=== PATIENT | female | born 1980 | race Caucasian/White ===

== ENCOUNTER 2017-12-16 21:04 | Emergency (ER) | payer SELFPAY ==
[2017-12-16 21:08] VITALS: BP 126/74
[2017-12-16] MEDS ORDERED: ALPR-429 PO (21:12)
--- NOTE | 2017-12-16 21:32 | ER Report ---
History and Physical Time Seen By MD: 21:31 Hx. of Stated Complaint: PATIENT HAS BEEN HAVING PAIN IN HER LOWER LEFT TEETH FOR A WHILE OFF ANFD ON, SHE WAS GIVEN ANITBIOTIC DOWN IN [place] BEFORE SHE MOVED, PATIENT STATES SHE HAD BEEN REFERED TO [facility] SURGEON BUT WAS IN THE PROCESS OF MOVING. PATIENT HAS HAD INCREASED SWELLING IN PAIN IN LEFT LOWER TEETH, WITH PAIN RADIATING TO LEFT HEAR AND HEAD. HPI/ROS CHIEF COMPLAINT: Dental pain HISTORY OF PRESENT ILLNESS: 37-year-old female who recently moved here 2-1/2 months ago is complaining of left lower jaw pain. She's been having pain in teeth for several months. She has caries in her last 3 molars. She notes increasing pain over the last 3 days. She is having trouble swallowing. She notes fevers. She notes facial swelling. She states no relief with Tylenol or ibuprofen. Patient denies nausea or vomiting. REVIEW OF SYSTEMS: Respiratory: No cough, no dyspnea. Cardiovascular: No chest pain, no palpitations. Gastrointestinal: No vomiting, no abdominal pain. Musculoskeletal: No back pain. Allergies: Coded Allergies: No Known Drug Allergies (Unverified , 12/16/17) Home Meds Active Scripts Amoxicillin 500 Mg Tab (AMOXICILLIN 500 MG TAB) 500 Mg Tablet, 1 TAB PO Q8H for infection, #30 TAB Prov:SCOTT GARCIA DO 12/16/17 Oxycodone Hcl/Acetaminophen (PERCOCET 5-325 MG TABLET) 1 Each Tablet, 1 EACH PO Q4-6H Y for PAIN, #12 Prov:SCOTT GARCIA DO 12/16/17 Reported Medications Alprazolam (XANAX) 0.5 Mg Tablet, 1 TAB PO TID, TAB 12/16/17 Reviewed Nurses Notes: Yes Old Medical Records Reviewed: Yes Constitutional Vital Sign - Last 24 Hours 12/16/17 21:08 Temp 98.4 Pulse 105 Resp 20 B/P (MAP) 126/74 Pulse Ox 93 O2 Delivery Room Air Physical Exam General Appearance: The patient is alert, has no immediate need for airway protection and no current signs of toxicity. Vital signs stable, afebrile, pulse ox normal HEENT: Pupils equal and round no injection. TMs normal, TMJs nontender, examination of the oropharynx reveals caries involving teeth 1819 and 20. There is surrounding gum inflammation. Respiratory: Chest is non tender, lungs are clear to auscultation. Cardiac: regular rate and rhythm, no murmur Gastrointestinal: Abdomen is soft and non tender, no masses, bowel sounds normal. Musculoskeletal: Neck: Neck is supple and non tender. No lymphadenopathy Extremities have full range of motion and are non tender. Skin: No rashes or lesions. DIFFERENTIAL DIAGNOSIS: After history and physical exam differential diagnosis was considered for dental pain, tooth abscess, osteomyelitis of the jaw, canker sores, lymphadenitis Medical Decision Making ED Course/Re-evaluation ED Course Patient was admitted to an examination room. H&P was done. The differential diagnoses was considered. On conical examination, patient appears to have dental abscess in her left lower jaw. She'll be covered with amoxicillin. She' s given a limited supply of Percocet for pain relief. She is advised Aleve 2 tablets twice daily for pain relief. She is advised to take those with food. She is advised to apply warm compresses to her jaw. She is given a list of local dentist and primary care physicians to get established with. Decision to Disposition Date: Dec 16, 2017 Decision to Disposition Time: 21:36 Depart Departure Latest Vital Signs Vital Signs Date Time Temp Pulse Resp B/P (MAP) Pulse Ox O2 Delivery O2 Flow Rate FiO2 12/16/17 21:08 98.4 105 20 126/74 93 Room Air Impression: Primary Impression: Abscessed tooth Additional Impression: Anxiety Condition: Improved Disposition: HOME OR SELF-CARE Referrals: BETTINA GASPAR MD, FARRUKH MD New Scripts Amoxicillin 500 Mg Tab (AMOXICILLIN 500 MG TAB) 500 Mg Tablet 1 TAB PO Q8H for infection, #30 TAB Prov: SCOTT GARCIA DO 12/16/17 Oxycodone Hcl/Acetaminophen (PERCOCET 5-325 MG TABLET) 1 Each Tablet 1 EACH PO Q4-6H Y for PAIN, #12 Prov: SCOTT GARCIA DO 12/16/17 Patient Instructions: Dental Abscess (ED) Additional Instructions: Take Aleve 2 tablets twice daily with food Apply warm compresses to your left lower jaw Follow-up with a dentist as soon as possible. A list of local dentist was provided Follow-up with primary care and get established for management of your anxiety with or [facility] Problem Qualifiers SCOTT GARCIA DO Dec 16, 2017 21:32
[2017-12-16] MEDS ORDERED: oxyCODONE/ACETAMIN 5/325MG TH 2 TAB/BOTTLE PO ONE (21:35)
[2017-12-16] MEDS ORDERED: AMOXICILLIN 500 MG CAP PO ONE (21:35)
[2017-12-16] MEDS ORDERED: AMOX500T10 PO (21:38)
[2017-12-16] MEDS ORDERED: OXYC-865 PO (21:38)
== END 2017-12-16 21:46 | disposition home or self-care (01) ==
LOC: ER 21:27
DX: K04.7 Periapical abscess without sinus (principal)
CPT/HCPCS: 99283

== ENCOUNTER 2018-01-04 17:04 | Emergency (ER) | payer MEDICAID ==
[~2018-01-04 17:04] MED LIST: ALPR-429 PO; AMOX500T10 PO; OXYC-865 PO
[2018-01-04 17:07] VITALS: BP 118/67
--- NOTE | 2018-01-04 17:13 | ER Report ---
History and Physical Time Seen By MD: 17:14 Hx. of Stated Complaint: DENTAL PAIN WITH ABSCESS FOR 1.5 MONTHS HPI/ROS CHIEF COMPLAINT: dental pain HISTORY OF PRESENT ILLNESS: This is a 37 year old female. She has been having ongoing dental problems. Has been to the dentist, they did x-rays and says she need oral surgery to remove a soft tissue mass and possibly extraction as well. With increasing pain the last few days. She is trying to make arrangements, but because of cost of the procedure is having problems, saying it will cost $1600. Allergies: Coded Allergies: No Known Drug Allergies (Unverified , 12/16/17) Home Meds Active Scripts Oxycodone Hcl (OXYCODONE HCL) 5 Mg Tablet, 5 MG PO Q4H PRN for PAIN, #15 TAB 0 Refills Prov:TATY OCAMPO MD 01/04/18 Amoxicillin (AMOXICILLIN) 500 Mg Capsule, 1 CAP PO Q8H, #30 CAPSULE 0 Refills Prov:TATY OCAMPO MD 01/04/18 Discontinued Reported Medications Alprazolam (XANAX) 0.5 Mg Tablet, 1 TAB PO TID, TAB 12/16/17 Discontinued Scripts Amoxicillin 500 Mg Tab (AMOXICILLIN 500 MG TAB) 500 Mg Tablet, 1 TAB PO Q8H for infection, #30 TAB Prov:SCOTT GARCIA DO 12/16/17 Oxycodone Hcl/Acetaminophen (PERCOCET 5-325 MG TABLET) 1 Each Tablet, 1 EACH PO Q4-6H PRN for PAIN, #12 Prov:SCOTT GARCIA DO 12/16/17 Reviewed Nurses Notes: Yes Hx Alcohol Use: Yes (OCCASIONAL) Constitutional Vital Sign - Last 24 Hours 01/04/18 17:07 Temp 97.8 Pulse 125 Resp 18 B/P (MAP) 118/67 Pulse Ox 95 O2 Delivery Room Air Physical Exam General: Alert, no acute distress. ENT: Dental with a pink colored soft tissue mass, mainly on the inside of the molars, but extends to the outside area as well. Redness and tenderness of teeth and surrounding gums. No sign of abscess at this time and no drainage noted. Medical Decision Making ED Course/Re-evaluation ED Course Need to follow-up with the oral surgeon for this. Able to give further pain medicines and will start another course of amoxicillin. Decision to Disposition Date: Jan 04, 2018 Decision to Disposition Time: 17:27 Depart Departure Latest Vital Signs Vital Signs Date Time Temp Pulse Resp B/P (MAP) Pulse Ox O2 Delivery O2 Flow Rate FiO2 01/04/18 17:07 97.8 125 18 118/67 95 Room Air Impression: Primary Impression: Dental infection Condition: Improved Disposition: HOME OR SELF-CARE New Scripts Oxycodone Hcl (OXYCODONE HCL) 5 Mg Tablet 5 MG PO Q4H PRN for PAIN, #15 TAB 0 Refills Prov: TATY OCAMPO MD 01/04/18 Amoxicillin (AMOXICILLIN) 500 Mg Capsule 1 CAP PO Q8H, #30 CAPSULE 0 Refills Prov: TATY OCAMPO MD 01/04/18 Additional Instructions: You will need to follow-up with dental specialists to have the mass in the gums addressed. We will provide Oxycodone 5mg tablets to use as needed for pain every 4 hours. Keep taking Ibuprofen 200mg tablets, 4 tablets every 8 hours as needed for pain. Take Amoxicillin 500mg three times a day for 10 days. TATY OCAMPO MD Jan 04, 2018 17:13
[2018-01-04] MEDS ORDERED: oxyCODONE HCL 5 MG CAP PO ONE (17:25)
[2018-01-04] MEDS ORDERED: AMOXICILLIN 500 MG CAP PO ONE (17:25)
[2018-01-04] MEDS ORDERED: OXYC5TAB38 PO (17:31)
[2018-01-04] MEDS ORDERED: AMOX-362 PO (17:31)
== END 2018-01-04 17:41 | disposition home or self-care (01) ==
LOC: ER 17:11
DX: K04.7 Periapical abscess without sinus (principal)
CPT/HCPCS: 99283

== ENCOUNTER 2018-01-08 16:11 | Emergency (ER) | payer MEDICAID ==
[~2018-01-08 16:11] MED LIST changes: +AMOX-362 PO; +OXYC5TAB38 PO
--- NOTE | 2018-01-08 16:25 | ER Report ---
History and Physical Time Seen By MD: 16:21 Hx. of Stated Complaint: MOUTH PAIN HPI/ROS CHIEF COMPLAINT: Dental pain HISTORY OF PRESENT ILLNESS: This is a 37-year-old female who presents to the emergency department for dental pain. Patient has been seen and evaluated in the ER 3 times for dental pain. Patient states she does have the funds to have the dental work done, she did follow-up with the oral surgeon today. However she ne glected to ask him for additional pain medication. Patient is here primarily requesting pain medication. She states that the swelling, inflammation and overall discomfort has improved since starting on the antibiotics. Patient denies fevers or chills. No shortness of breath or chest pain. REVIEW OF SYSTEMS: Respiratory: No cough, no dyspnea. Cardiovascular: No chest pain, no palpitations. Gastrointestinal: No vomiting, no abdominal pain. Musculoskeletal: No back pain. Dental: As above. Allergies: Coded Allergies: No Known Drug Allergies (Unverified , 01/08/18) Home Meds Active Scripts Oxycodone Hcl (OXYCODONE HCL) 5 Mg Capsule, 5 MG PO Q6H, #6 CAPSULE 0 Refills Prov:KAY HARRIS ENERGY ADVISOR-BC 01/08/18 Discontinued Reported Medications Alprazolam (XANAX) 0.5 Mg Tablet, 1 TAB PO TID, TAB 12/16/17 Discontinued Scripts Oxycodone Hcl (OXYCODONE HCL) 5 Mg Tablet, 5 MG PO Q4H PRN for PAIN, #15 TAB 0 Refills Prov:TATY OCAMPO MD 01/04/18 Amoxicillin (AMOXICILLIN) 500 Mg Capsule, 1 CAP PO Q8H, #30 CAPSULE 0 Refills Prov:TATY OCAMPO MD 01/04/18 Amoxicillin 500 Mg Tab (AMOXICILLIN 500 MG TAB) 500 Mg Tablet, 1 TAB PO Q8H for infection, #30 TAB Prov:SCOTT GARCIA DO 12/16/17 Oxycodone Hcl/Acetaminophen (PERCOCET 5-325 MG TABLET) 1 Each Tablet, 1 EACH PO Q4-6H PRN for PAIN, #12 Prov:SCOTT GARCIA DO 12/16/17 Past Medical/Surgical History The patient has a past medical and surgical history of migraines, irregular heartbeat, asthma, poor dentition, anxiety, tubal ligation. Reviewed Nurses Notes: Yes Hx Alcohol Use: Yes (OCCASIONAL) Constitutional Vital Sign - Last 24 Hours 01/08/18 01/08/18 01/08/18 01/08/18 16:17 17:02 18:00 18:09 Temp 97.8 Pulse 110 98 90 Resp 18 12 B/P (MAP) 130/99 128/74 (92) 132/74 (93) Pulse Ox 96 95 94 O2 Delivery Room Air Room Air Physical Exam General Appearance: The patient is alert, has no immediate need for airway protection and no current signs of toxicity, tearful. Dental: Multiple dental caries, poor dentition, multiple missing teeth, there is a mass to the inside of the left lower gumline that appears to be the source of pain. Pain to light touch. No erythema. Gingiva is pale, not cellulitic appearing. Eyes: Pupils equal and round no injection. Respiratory: Chest is non tender, lungs are clear to auscultation. Cardiac: regular rate and rhythm. Gastrointestinal: Abdomen is soft and non tender, no masses, bowel sounds normal. Musculoskeletal: Neck: Neck is supple and non tender. Extremities have full range of motion and are non tender. Skin: No rashes or lesions. DIFFERENTIAL DIAGNOSIS: After history and physical exam differential diagnosis was considered for dental caries, dental abscess and oral cancer. Medical Decision Making ED Course/Re-evaluation ED Course The patient was admitted to a room. A history was were obtained. Differential diagnoses were considered. This is the 3rd visit for dental pain since December. Most recently the patient was started on antibiotics and given some pain medication. Patient is here requesting some relief from her pain. She states she does have a scheduled appointment with the oral surgeon next week. I did offer the patient a dental block, which did not take. Patient was given one hydrocodone and one oxycodone in the ER. Patient was given a one-time prescription for 6 oxycodone. The patient was instructed to follow-up with the dentist or oral surgeon for subsequent pain medication. Patient does understand that we cannot continue to fill narcotic pain medications for chronic dental pain. She is still taking her antibiotics. Patient had no other questions or concerns at this time and was discharged home. Procedure: Dental block. An inferior alveolar dental block was performed. The indication for the proced ure was continued dental pain. The patient has multiple dental caries, has had a "dental abscess" for approximately 1 year. The procedure was performed by myself. Decision to Disposition Date: Jan 08, 2018 Decision to Disposition Time: 18:06 Depart Departure Latest Vital Signs Vital Signs Date Time Temp Pulse Resp B/P (MAP) Pulse Ox O2 Delivery O2 Flow Rate FiO2 01/08/18 18:09 132/74 (93) 01/08/18 18:00 90 94 01/08/18 17:02 12 Room Air 01/08/18 16:17 97.8 Impression: Primary Impression: Pain, dental Additional Impression: Pain due to dental caries Condition: Improved Disposition: HOME OR SELF-CARE New Scripts Oxycodone Hcl (OXYCODONE HCL) 5 Mg Capsule 5 MG PO Q6H, #6 CAPSULE 0 Refills Prov: KAY HARRIS 01/08/18 Patient Instructions: Dental Abscess (ED), Dental Caries (ED) Additional Instructions: Continue taking the antibiotics as prescribed. Contact your oral surgeon for medications that can treat your chronic dental pain. Take Ibuprofen or Tylenol as needed for pain. Keep your appointment with the oral surgeon next week. Drink plenty of water. Get plenty of rest. Try a warm pack to the affected area, this may provide some relief. Return to the ED for any other concerns or worsening symptoms. Problem Qualifiers KAY HARRIS-AMY Jan 08, 2018 16:25
[2018-01-08] MEDS ORDERED: APAP/HYDROCODONE 325/5 TAB PO ONE (16:35)
[2018-01-08] MEDS ORDERED: oxyCODONE HCL 5 MG CAP PO ONE (17:25)
[2018-01-08] MEDS ORDERED: OXYC5CAP21 PO (17:57)
[2018-01-08 18:09] VITALS: BP 132/74
== END 2018-01-08 18:12 | disposition home or self-care (01) ==
LOC: ER 16:18
DX: K08.89 Other specified disorders of teeth and supporting structures (principal); K02.9 Dental caries, unspecified
CPT/HCPCS: 99283

== ENCOUNTER → 2018-01-12 | Outpatient (CLI) | payer MEDICAID ==
[~2018-01-12] MED LIST changes: +ALBU8.5H IH; +AZIT-18 PO; +BENZ200C15 PO; +DICY10CA11 PO; +ONDA4TAB PO; +OXYC5CAP21 PO; +PRED20TA6 PO
== END ==
LOC: AMB 22:45
PROVIDERS: ATTEND Nurse Practitioner
DX: R06.00 Dyspnea, unspecified (principal); R05 Cough; R19.7 Diarrhea, unspecified
CPT/HCPCS: A0425; A0427

== ENCOUNTER 2018-01-13 11:45 | Emergency (ER) | payer MEDICAID ==
[~2018-01-13 11:45] MED LIST changes: -AZIT-18 PO; -DICY10CA11 PO; -ONDA4TAB PO; -PRED20TA6 PO
--- NOTE | 2018-01-13 11:56 | ER Report ---
History and Physical Time Seen By MD: 11:57 Hx. of Stated Complaint: PT REPORTS INCREASED SOB, PAIN IN L EAR AND JAW AND WORSENING COUGH WITH INCREASED PAIN HPI/ROS 37-year-old female with a history of IV drug abuse, narcotic abuse, and chronic pain. She moved to [place] from [place] approximately 3 weeks ago. She has been seen in this emergency department 6 times since she moved here. She has been seen in the emergency department 5 times between January 04 and January 13 complaining of jaw pain from a "abscess." She was seen in the emergency department yesterday for the same complaint. She argued with the mid-level provider about not getting a take-home prescription for narcotics. His called today by the urgent care physician who said the patient was at the urgent care asking for oxycodone because of the "infection" in her mouth. The provider at the urgent care noted that she was tachycardic, borderline hypoxic, and wheezing on her lung exam. He sent her to the emergency department for further evaluati on. She is complaining of pain in her jaw and mild shortness of breath and a cough. She denies fever chills. She again states that when she lived in [place] she was receiving 30 mg a day of oxycodone, by mouth morphine, and by mouth dilaudid. I immediately discussed with her that that was not appropriate medical care, and that I would be evaluating her for her chief complaints today. She denied chest pain. She denies fever chills. She smokes a pack of cigarettes a day. 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 She is currently on amoxicillin for what had appeared to be a dental carry. Remainder of the 14 system rev: Yes Allergies: Coded Allergies: No Known Drug Allergies (Unverified , 01/13/18) Home Meds Active Scripts Azithromycin 250 Mg Tab (AZITHROMYCIN 250 MG TAB) 250 Mg Tablet, 1 TAB PO QDAY for 4 Days, #4 TAB Prov:ITALIA GO MD 01/13/18 Prednisone (PREDNISONE) 20 Mg Tablet, 40 MG PO QDAY for 5 Days, #10 TAB Prov:ITALIA GO MD 01/13/18 Dicyclomine Hcl (DICYCLOMINE HCL) 10 Mg Capsule, 10 MG PO QID for 14 Days, #20 CAPSULE Prov:ITALIA GO MD 01/13/18 Ondansetron (ZOFRAN ODT) 4 Mg Tab.rapdis, 4 MG PO Q6H PRN for NAUSEA/VOMITING, #20 TAB.MARIE 0 Refills Prov:ITALIA GO MD 01/13/18 Benzonatate (BENZONATATE) 200 Mg Capsule, 200 MG PO TID PRN for COUGH, #15 CAP Prov:KAY HARRIS [facility] 01/12/18 Albuterol Sulfate 90 Mcg/Act (PROAIR HFA 90 MCG/ACT) 8.5 Gm Hfa.aer.ad, 1-2 PUFF IH 3-4XD, #1 INHALER Prov:KAY HARRIS [facility] 01/12/18 Discontinued Scripts Oxycodone Hcl (OXYCODONE HCL) 5 Mg Capsule, 5 MG PO Q6H, #6 CAPSULE 0 [facility] 01/08/18 Oxycodone Hcl (OXYCODONE HCL) 5 Mg Tablet, 5 MG PO Q4H PRN for PAIN, #15 TAB 0 Refills Prov:TATY OCAMPO MD 01/04/18 Amoxicillin (AMOXICILLIN) 500 Mg Capsule, 1 CAP PO Q8H, #30 CAPSULE 0 Refills Prov:TATY OCAMPO MD 01/04/18 Reviewed Nurses Notes: Yes Old Medical Records Reviewed: Yes Hx Smoking: Yes Smoking Status: Current: Every Day Smoker Exposure to Second Hand Smoke?: Yes Hx Substance Use Disorder: Yes Hx Alcohol Use: Yes (OCCASIONAL) Constitutional Vital Sign - Last 24 Hours 01/13/18 01/13/18 01/13/18 01/13/18 11:45 11:45 11:51 12:00 Temp 98.4 Pulse 118 112 Resp 24 B/P (MAP) 119/69 119/69 (86) 116/67 (83) Pulse Ox 94 92 O2 Delivery Nasal Cannula O2 Flow Rate 2.0 01/13/18 01/13/18 01/13/18 01/13/18 12:15 12:15 12:15 12:20 Pulse 123 120 116 Resp 20 20 Pulse Ox 93 93 O2 Delivery Nasal Cannula O2 Flow Rate 2.0 01/13/18 01/13/18 01/13/1801/13/18 12:30 13:00 13:05 13:20 Pulse 130 112 118 124 B/P (MAP) 125/90 (102) 120/65 (83) Pulse Ox 93 92 91 91 01/13/18 01/13/18 01/13/18 01/13/18 13:30 13:35 14:00 14:35 Pulse 123 110 B/P (MAP) 125/54 (77) 128/118 (121) Pulse Ox 91 89 01/13/18 01/13/18 01/13/18 01/13/18 14:40 15:10 15:30 15:40 Pulse 111 122 116 B/P (MAP) 121/71 (88) Pulse Ox 88 87 88 01/13/18 01/13/18 01/13/18 01/13/18 16:00 16:20 16:28 16:28 Pulse 120 124 Resp 20 B/P (MAP) 137/94 (108) Pulse Ox 89 90 O2 Delivery Room Air 01/13/18 01/13/18 16:40 17:49 Temp 98.4 Pulse 120 104 Resp 20 20 B/P (MAP) 104/84 (91) Pulse Ox 91 O2 Delivery Room Air Physical Exam General Appearance: The patient is alert, has no immediate need for airway protection and no current signs of toxicity. ENT: There is a firm and non-fluctuant mass-like structure in her left lower molar region, TM's are clear Eyes: Pupils equal and round no injection. Respiratory: Chest is non tender, there is diffuse wheezing throughout the lung lovell Cardiac: tachycardic and rhythm Gastrointestinal: Abdomen is soft and non tender, no masses, bowel sounds normal. Neck: Neck is supple and non tender. Extremities have full range of motion and are non tender. Skin: No rashes or lesions. DIFFERENTIAL DIAGNOSIS: After history and physical exam differential diagnosis was considered for pneumonia, PE, bronchitis, COPD exacerbation, opiate withdrawal, dental mass Medical Decision Making Data Points Result Diagram: 01/13/18 1459 01/13/18 1459 Laboratory Hematology Test 01/13/18 14:59 01/13/18 15:27 Red Blood Count 4.46 M/uL (4.17-5.56) Mean Corpuscular Volume 91.9 fL (80.0-96.0) Mean Corpuscular Hemoglobin 32.2 pg (26.0-33.0) Mean Corpuscular Hemoglobin Concent 35.0 g/dL (32.0-36.0) Red Cell Distribution Width 14.4 % (11.5-14.5) Mean Platelet Volume 8.6 fL (7.2-11.1) Neutrophils (%) (Auto) 89.3 % (39.4-72.5) Lymphocytes (%) (Auto) 7.4 % (17.6-49.6) Monocytes (%) (Auto) 2.7 % (4.1-12.4) Eosinophils (%) (Auto) 0.2 % (0.4-6.7) Basophils (%) (Auto) 0.4 % (0.3-1.4) Nucleated RBC Relative Count (auto) 0.0 /100WBC Neutrophils # (Auto) 7.7 K/uL (2.0-7.4) Lymphocytes # (Auto) 0.6 K/uL (1.3-3.6) Monocytes # (Auto) 0.2 K/uL (0.3-1.0) Eosinophils # (Auto) 0.0 K/uL (0.0-0.5) Basophils # (Auto) 0.0 K/uL (0.0-0.1) Nucleated RBC Absolute Count (auto) 0.00 K/uL D-Dimer Quantitative (PE/DVT) 0.38 ug/ml (0-0.50) Sodium Level 138 mmol/L (137-145) Potassium Level 3.8 mmol/L (3.5-5.0) Chloride Level 108 mmol/L (98-107) Carbon Dioxide Level 20 mmol/L (22-31) Blood Urea Nitrogen 10 mg/dl (7-18) Creatinine 0.60 mg/dl (0.52-1.04) Glomerular Filtration Rate Calc > 60.0 Random Glucose 107 mg/dl (75-110) Calcium Level 7.8 mg/dl (8.4-10.2) Total Bilirubin 0.9 mg/dl (0.2-1.3) Aspartate Amino Transf (AST/SGOT) 165 U/L (0-35) Alanine Aminotransferase (ALT/SGPT) 250 U/L (0-56) Alkaline Phosphatase 116 U/L (0-126) Total Protein 6.9 g/dl (6.3-8.2) Albumin 3.9 g/dl (3.5-5.0) Urine HCG, Qualitative Negative (NEGATIVE) Urine Opiates Screen Positive Urine Barbiturates Screen Negative Ur Tricyclic Antidepressants Screen Negative Urine Phencyclidine Screen Negative Urine Amphetamines Screen Negative Urine Benzodiazepines Screen Negative Urine Cocaine Screen Negative Urine Cannabinoids Screen Positive Chemistry Test 01/13/18 14:59 01/13/18 15:27 White Blood Count 8.6 k/uL (4.5-11.0) Red Blood Count 4.46 M/uL (4.17-5.56) Hemoglobin 14.4 g/dL (12.0-16.0) Hematocrit 41.0 % (34.0-47.0) Mean Corpuscular Volume 91.9 fL (80.0-96.0) Mean Corpuscular Hemoglobin 32.2 pg (26.0-33.0) Mean Corpuscular Hemoglobin Concent 35.0 g/dL (32.0-36.0) Red Cell Distribution Width 14.4 % (11.5-14.5) Platelet Count 169 K/uL (150-450) Mean Platelet Volume 8.6 fL (7.2-11.1) Neutrophils (%) (Auto) 89.3 % (39.4-72.5) Lymphocytes (%) (Auto) 7.4 % (17.6-49.6) Monocytes (%) (Auto) 2.7 % (4.1-12.4) Eosinophils (%) (Auto) 0.2 % (0.4-6.7) Basophils (%) (Auto) 0.4 % (0.3-1.4) Nucleated RBC Relative Count (auto) 0.0 /100WBC Neutrophils # (Auto) 7.7 K/uL (2.0-7.4) Lymphocytes # (Auto) 0.6 K/uL (1.3-3.6) Monocytes # (Auto) 0.2 K/uL (0.3-1.0) Eosinophils # (Auto) 0.0 K/uL (0.0-0.5) Basophils # (Auto) 0.0 K/uL (0.0-0.1) Nucleated RBC Absolute Count (auto) 0.00 K/uL D-Dimer Quantitative (PE/DVT) 0.38 ug/ml (0-0.50) Glomerular Filtration Rate Calc > 60.0 Calcium Level 7.8 mg/dl (8.4-10.2) Total Bilirubin 0.9 mg/dl (0.2-1.3) Aspartate Amino Transf (AST/SGOT) 165 U/L (0-35) Alanine Aminotransferase (ALT/SGPT) 250 U/L (0-56) Alkaline Phosphatase 116 U/L (0-126) Total Protein 6.9 g/dl (6.3-8.2) Albumin 3.9 g/dl (3.5-5.0) Urine HCG, Qualitative Negative (NEGATIVE) Urine Opiates Screen Positive Urine Barbiturates Screen Negative Ur Tricyclic Antidepressants Screen Negative Urine Phencyclidine Screen Negative Urine Amphetamines Screen Negative Urine Benzodiazepines Screen Negative Urine Cocaine Screen Negative Urine Cannabinoids Screen Positive Coagulation Test 01/13/18 14:59 D-Dimer Quantitative (PE/DVT) 0.38 ug/ml Toxicology Test 01/13/18 15:27 Urine Opiates Screen Positive Urine Barbiturates Screen Negative Ur Tricyclic Antidepressants Screen Negative Urine Phencyclidine Screen Negative Urine Amphetamines Screen Negative Urine Benzodiazepines Screen Negative Urine Cocaine Screen Negative Urine Cannabinoids Screen Positive Urinalysis Test 01/13/18 15:27 Urine HCG, Qualitative Negative (NEGATIVE) EKG/Imaging EKG Interpretation 12 lead EKG: Rhythm: Sinus tachycardia Griffith: normal QRS: normal ST segments: normal Monitor Interpretation: Sinus Tachycardia Imaging X-ray: cxr was obtained. I viewed the images myself on the PACS system. My interpretation of the images is: no infiltrate. The radiologist interpretation had no clinically significant variation from this interpretation. Results: CT scan of the mandible was obtained. The results of the study are no abscess or mass. The study was read by the radiologist. I viewed the images myself on the PACS system. ED Course/Re-evaluation Clinical Indication for ER IV: Hydration, IV Access ED Course 37-year-old female sent to the emergency department for hypoxia, tachycardia, and wheezing on lung exam. She was given a DuoNeb, and albuterol neb, prednisone, and Mucinex. She was given a prescription for an albuterol MDI yesterday. PE was considered, but d-dimer is negative and she has other reasons for her tachycardia. Throughout her ED stay she asked for narcotic pain medication for the pain in her mouth. I gave her Toradol and IV acetaminophen for pain, and she continued to complain about not getting narcotics. Given that she has been here 6 times complaining of pain from a dental "abscess," I elected to obtain a CT scan of the mandible to determine if she had an infection. CT scan of the mandible shows no evidence of infection, and no evidence of a mass. She does have a small soft tissue mass, but it is likely chronic. She states that she has a dental surgery scheduled on Saturday. I had a long discussion with she and her boyfriend about the fact that I think her tachycardia is from narcotic withdrawal. She stated multiple times that she received oxycodone, by mouth morphine, and Dilaudid for pain while she was in [place]. I counseled her that she should seek help for her narcotic addiction. She is very tearful during the discussion. Her boyfriend was in support of her becoming clean from her narcotic addiction. He admits that she has been seeking narcotics. I told her that I would treat her symptoms of continued narcotic withdrawal, and reminded her that she essentially had been tapering for the past 3 weeks. I gave her a clonidine patch and a prescription for Bentyl and Zofran. I also gave her information to seek treatment for her narcotic addiction. Decision to Disposition Date: Jan 13, 2018 Decision to Disposition Time: 17:37 Depart Departure Latest Vital Signs Vital Signs Date Time Temp Pulse Resp B/P (MAP) Pulse Ox O2 Delivery O2 Flow Rate FiO2 01/13/18 17:49 98.4 104 20 104/84 (91) 91 Room Air 01/13/18 12:15 2.0 Impression: Primary Impression: Opiate misuse Additional Impressions: Opiate withdrawal Pneumonia Condition: Improved Disposition: HOME OR SELF-CARE New Scripts Azithromycin 250 Mg Tab (AZITHROMYCIN 250 MG TAB) 250 Mg Tablet 1 TAB PO QDAY for 4 Days, #4 TAB Prov: ITALIA GO MD 01/13/18 Prednisone (PREDNISONE) 20 Mg Tablet 40 MG PO QDAY for 5 Days, #10 TAB Prov: ITALIA GO MD 01/13/18 Dicyclomine Hcl (DICYCLOMINE HCL) 10 Mg Capsule 10 MG PO QID for 14 Days, #20 CAPSULE Prov: ITALIA GO MD 01/13/18 Ondansetron (ZOFRAN ODT) 4 Mg Tab.rapdis 4 MG PO Q6H PRN for NAUSEA/VOMITING, #20 TAB.MARIE 0 Refills Prov: ITALIA GO MD 01/13/18 Patient Instructions: Community Acquired Pneumonia (ED), Opioid Dependence (ED) Problem Qualifiers Additional Impressions: Pneumonia Pneumonia type: due to unspecified organism Laterality: unspecified laterality Lung location: unspecified part of lung Qualified Codes: J18.9 - Pneumonia, unspecified organism ITALIA GO MD Jan 13, 2018 11:56
[2018-01-13] MEDS ORDERED: predniSONE 20 MG TAB PO ONE (12:05)
[2018-01-13] MEDS ORDERED: guaiFENesin/P-EPHED 1 EA TABCR PO ONE (12:05)
[2018-01-13] MEDS ORDERED: ALBUTEROL/IPRATROPIUM 3 ML NEB NEB ONE (12:05)
[2018-01-13] MEDS ORDERED: NS(*) 0.9% 1000 ML BAG 1,000 ML IV ONE (12:05)
--- NOTE | 2018-01-13 13:12 | RADIOLOGY IMAGING REPORT ---
FACILITY: [facility] PATIENT NAME: Ainsley Parnell : 1980 MR: [id number] V: [id number] EXAM DATE: ORDERING PHYSICIAN: ITALIA GO TECHNOLOGIST: Location: [facility] Patient: Ainsley Parnell : 1980 Visit/Account:[id number] Date of Sevice: 01/13/2018 CHEST PA AND LAT HISTORY: Cough. Hypoxia. COMPARISON: January. FINDINGS: Cardiomediastinal contours: The heart size is normal. Lungs and pleura: Comparison the previous study shows no change in previous noted prominence of the b ronchovascular markings. The findings could represent bronchitis or perhaps early atypical pneumonia . Correlation clinical findings is recommended. There is prominence of the jade bilaterally. This is a stable finding. Bones/soft tissues: There are no findings of a fracture. IMPRESSION: 1. Mild and persistent prominence of the interstitial markings perhaps related to bronchitis or perh aps atypical pneumonia. There is prominence of the central jade could be vascular in nature, but the re are no pleural effusions. Report Dictated By: Dilan Emanuel MD at 01/13/2018 1:07 PM Report E-Signed By: Dilan Emanuel MD at 01/13/2018 1:09 PM WSN:[id number]
[2018-01-13] MEDS ORDERED: ACETAMINOPHEN(*)1000 MG/100 ML 100 ML IVPB ONE (13:55)
[2018-01-13] MEDS ORDERED: ALBUTEROL 2.5 MG/0.5ML ER ONLY NEB ONE (14:10)
[2018-01-13] MEDS ORDERED: IOPAMIDOL 76% 75 ML INFUS BTL 75 ML ONE (14:58)
--- NOTE | 2018-01-13 15:23 | EKG ---
FACILITY: [facility] [place] PATIENT NAME: YOLI GARDINER : [id number] MR: [id number]: [id number] EXAM DATE: ORDERING PHYSICIAN: ITALIA GO TECHNOLOGIST: Test Reason : Blood Pressure : / mmHG Vent. Rate : 113 BPM Atrial Rate : 113 BPM P-R Int : 124 ms QRS Dur : 088 ms QT Int : 342 ms P-R-T Axes : 059 061 034 degrees QTc Int : 469 ms Sinus tachycardia Otherwise normal ECG When compared with ECG of 12-JAN-2018 23:11, No significant change was found Confirmed by Beto Condon ([id number]) on 01/13/2018 8:02:42 PM Referred By: Confirmed By:Beto Greenberg
[2018-01-13 15:25] LABS: PLATELET COUNT, AUTOMATED 169 K/uL (150-450)
[2018-01-13] MEDS ORDERED: KETOROLAC 30 MG/ML VIAL IM ONE (15:55)
--- NOTE | 2018-01-13 16:52 | RADIOLOGY IMAGING REPORT ---
FACILITY: [facility] PATIENT NAME: Ainsley Parnell : 1980 MR: [id number] V: [id number] EXAM DATE: ORDERING PHYSICIAN: ITALIA GO TECHNOLOGIST: Location: [facility] Patient: Ainsley Parnell : 1980 Visit/Account:[id number] Date of Sevice: 01/13/2018 EXAMINATION: CT facial bone with IV contrast HISTORY: Painful growth in left lower mouth/abscess. COMPARISON: None. TECHNIQUE: Axial images were obtained from the superior aspect of the orbits through the inferior as pect of mandible with IV contrast. Coronal and sagittal reformatted images were obtained from the axi al source data. CONTRAST: 75 mL of IV Isovue-370. One of the following dose optimization techniques was utilized in the performance of this exam: Autom ated exposure control; adjustment of the mA and/or kV according to the patient's size; or use of an i terative reconstruction technique. Specific details can be referenced in the facility's radiology C T exam operational policy. FINDINGS: Soft tissues: There is no focal soft tissue mass in the left mouth or elsewhere. No fluid collection. Mandible/TMJ: Negative. Maxilla/pterygoid plates: Negative. Zygoma/zygomatic arches: Negative. Orbits: Negative. Nasal bones/nasal septum: Mild nasal septal deviation to the left without significant narrowing the n kareem cavity. Frontal bones: Negative. Skull base: The styloid processes are elongated bilaterally with a gap in each of them centrally and ossification of the stylohyoid ligaments inferiorly. Together the styloid processes and ossification of stylohyoid ligaments measure nearly 6 cm on each side. The ossification extends to just above the hyoid bone bilaterally. Enhancement: Normal. Sinuses: Mild patchy mucosal thickening of the paranasal sinuses is worst in the right sphenoid sinus . Visualized brain: Negative. IMPRESSION: 1. No soft tissue mass or abscess. 2. Bilateral elongated styloid processes and ossification of the stylohyoid ligaments, which extend t o just above the hyoid bone. These have been reported with throat pain and potentially may be the pat ient's source of pain, although they also may be asymptomatic. Report Dictated By: Juliana Ovalle MD at 01/13/2018 4:39 PM Report E-Signed By: Juliana Ovalle MD at 01/13/2018 4:48 PM WSN:[id number]
[2018-01-13] MEDS ORDERED: AZITHROMYCIN 250 MG TAB PO ONE (17:20)
[2018-01-13] MEDS ORDERED: cloNIDine HCL 0.2 MG TDSY TD ONE (17:40)
[2018-01-13] MEDS ORDERED: DICY10CA11 PO (17:41)
[2018-01-13] MEDS ORDERED: ONDA4TAB PO (17:41)
[2018-01-13 17:49] VITALS: BP 104/84
[2018-01-13] MEDS ORDERED: AZIT-18 PO (18:01)
[2018-01-13] MEDS ORDERED: PRED20TA6 PO (18:01)
== END 2018-01-13 17:50 | disposition home or self-care (01) ==
LOC: ER 11:59
DX: F11.23 Opioid dependence with withdrawal (principal); J18.9 Pneumonia, unspecified organism
CPT/HCPCS: 36415; 70487; 71046; 80305; 81025; 85025; 85379; 94640; 96361; 96365; 96372; 99284; J0131; J1885; J7030; J7512; J7611; J7620; Q0144; Q9967; 82040; 82247; 82310; 82374; 82435; 82565; 82947; 84075; 84132; 84155; 84295; 84450; 84460; 84520

== ENCOUNTER → 2018-01-13 | Emergency (ER) | payer MEDICAID | LOC: ER 18:33 | DX: Z02.9 Encounter for administrative examinations, unspecified (principal) | CPT/HCPCS: 93005 ==

== ENCOUNTER 2018-01-30 17:59 | Emergency (ER) | payer MEDICAID ==
[~2018-01-30 17:59] MED LIST changes: +AZIT-18 PO; +DICY10CA11 PO; +ONDA4TAB PO; +PRED20TA6 PO
[2018-01-30 18:03] VITALS: BP 139/98
[2018-01-30] MEDS ORDERED: AMOX-362 PO (18:05)
--- NOTE | 2018-01-30 18:08 | ER Report ---
History and Physical Time Seen By MD: 18:07 Hx. of Stated Complaint: C/O THROBBING TO LEFT SIDE OF MOUTH AFTER TUMOR REMOVAL HPI/ROS CHIEF COMPLAINT: Postoperative pain. HISTORY OF PRESENT ILLNESS: This is a 38-year-old female who presents to the emergency department, she has been seen and evaluated here multiple times for dental concerns she presents for postoperative pain. Patient states she had the tumor removed, the dentist gave her only a certain amount of a medications, she states that she owes the dentist a lot of money and doesn't feel that she can call a dentist now she is out of pain medication. The incision and dental work and gums look well, no active bleeding. No swelling or erythema. No shortness of breath, no fevers or chest pain. REVIEW OF SYSTEMS: Respiratory: No cough, no dyspnea. Cardiovascular: No chest pain, no palpitations. Gastrointestinal: No vomiting, no abdominal pain. Musculoskeletal: No back pain. Dental: As above. Allergies: Coded Allergies: No Known Drug Allergies (Unverified , 01/30/18) Home Meds Active Scripts Albuterol Sulfate 90 Mcg/Act (PROAIR HFA 90 MCG/ACT) 8.5 Gm Hfa.aer.ad, 1-2 PUFF IH 3-4XD, #1 INHALER Prov:KAY HARRIS SOCIAL SECURITY ASSESSOR-BC 01/12/18 Reported Medications Amoxicillin (AMOXICILLIN) 500 Mg Capsule, 1 CAP PO Q8H, #15 CAPSULE 01/30/18 Discontinued Scripts Azithromycin 250 Mg Tab (AZITHROMYCIN 250 MG TAB) 250 Mg Tablet, 1 TAB PO QDAY for 4 Days, #4 TAB Prov:ITALIA GO MD 01/13/18 Prednisone (PREDNISONE) 20 Mg Tablet, 40 MG PO QDAY for 5 Days, #10 TAB Prov:ITALIA GO MD 01/13/18 Dicyclomine Hcl (DICYCLOMINE HCL) 10 Mg Capsule, 10 MG PO QID for 14 Days, #20 CAPSULE Prov:ITALIA GO MD 01/13/18 Ondansetron (ZOFRAN ODT) 4 Mg Tab.rapdis, 4 MG PO Q6H PRN for NAUSEA/VOMITING, #20 TAB.MARIE 0 Refills Prov:ITALIA GO MD 01/13/18 Benzonatate (BENZONATATE) 200 Mg Capsule, 200 MG PO TID PRN for COUGH, #15 CAP Prov:KAY HARRIS SOCIAL SECURITY ASSESSOR-BC 01/12/18 Past Medical/Surgical History The patient has a past medical and surgical history of asthma, irregular he artbeat, "bad teeth", anxiety, polysubstance abuse, heroin abuse. Reviewed Nurses Notes: Yes Hx Smoking: Yes Smoking Status: Current: Every Day Smoker Exposure to Second Hand Smoke?: Yes Hx Substance Use Disorder: Yes Hx Alcohol Use: Yes (OCCASIONAL) Constitutional Vital Sign - Last 24 Hours 01/30/18 18:03 Temp 99.5 Pulse 120 Resp 18 B/P (MAP) 139/98 Pulse Ox 95 O2 Delivery Room Air Physical Exam General Appearance: The patient is alert, has no immediate need for airway protection and no current signs of toxicity. Eyes: Pupils equal and round no injection. Dental: No erythema or inflammation to the gumline, gingiva intact. Surgical site appears to be intact, no drainage. Respiratory: Chest is non tender, lungs are clear to auscultation. Cardiac: regular rate and rhythm. Gastrointestinal: Abdomen is soft and non tender, no masses, bowel sounds normal. Musculoskeletal: Neck: Neck is supple and non tender. Extremities have full range of motion and are non tender. Skin: No rashes or lesions. DIFFERENTIAL DIAGNOSIS: After history and physical exam differential diagnosis was considered for dental abscess, postsurgical complications and narcotic abuse. Medical Decision Making ED Course/Re-evaluation ED Course The patient was admitted to room. A history and physical were obtained. Differential diagnoses were considered. After examination of the patient, it did appear that the tumor was removed from the patient's mouth, the area was excised looks remarkably well, no erythema or indication of infection. Patient is requesting narcotic pain medications for her pain, I did tell patient that I would give her a shot of Toradol, the patient was unwilling to take the shot of Toradol, 1 did speak with another provider so that she could get narcotics. I did have Dr. Go go in and speak with the patient, ultimately the patient left AMA. I also did tell the patient that it would be in her best interest to call and speak with the dentist again regarding her pain. Patient continued to say that as she owes the surgeon or dentist money they would not give her anything. 01/30/2018 6:15:19 pm the patient states that she is having significant pain fr om the removal of the tumor, she states she "owes her dentist a lot of money" and didn't feel like he would be able to give her any pain medication he only gave her 3 days worth, I did tell the patient that I could give her shot of Toradol but no other narcotics as we have had this discussion with her at least 6 times over the course of this month, patient has a long-standing history of opiate, narcotic abuse. Patient is requesting to see another provider. I did speak with Dr. Go she will go in and speak with the patient. Decision to Disposition Date: Jan 30, 2018 Decision to Disposition Time: 18:45 Depart Departure Latest Vital Signs Vital Signs Date Time Temp Pulse Resp B/P (MAP) Pulse Ox O2 Delivery O2 Flow Rate FiO2 01/30/18 18:03 99.5 120 18 139/98 95 Room Air Core Temperature (Celsius): 36.89 Impression: Primary Impression: Pain, dental Additional Impression: Opiate misuse Condition: Condition Unchanged Disposition: HOME OR SELF-CARE Problem Qualifiers KAY HARRIS SOCIAL SECURITY ASSESSOR-BC Jan 30, 2018 18:08
== END 2018-01-30 18:22 | disposition left against medical advice (07) ==
LOC: ER 18:11
DX: K08.89 Other specified disorders of teeth and supporting structures (principal); F11.90 Opioid use, unspecified, uncomplicated
CPT/HCPCS: 99281

== ENCOUNTER 2018-04-08 14:24 | Emergency (ER) | payer MEDICAID ==
--- NOTE | 2018-04-08 14:35 | ER Report ---
History and Physical Time Seen By MD: 14:36 Hx. of Stated Complaint: LEFT SIDED DENTAL PAIN STARTED LAST NIGHT HPI/ROS CHIEF COMPLAINT: Dental pain HISTORY OF PRESENT ILLNESS: 38-year-old female patient presents to emergency room with complaint of left-sided tooth pain. Patient states that she's been hav ing pain since last night. She states that she was eating when she felt shards of her tooth in her mouth. Patient states since then she's been having significant amounts of pain. She states that she's not been ill with keep her pain under control. She has tried Toradol, ibuprofen, Tylenol WITH no improvement. Also tried clove again with no improvement. She states she's felt hot, but denies any fevers or chills. Her significant other states that he was contacted by her employer stating that he needs can get her as she was in too much pain to continue working. Allergies: Coded Allergies: No Known Drug Allergies (Unverified , 04/08/18) Home Meds Active Scripts Amoxicillin (AMOXICILLIN) 500 Mg Capsule, 1 CAP PO Q8H, #21 CAPSULE Prov:MARIBELL GARZA DIRECTOR [facility] 04/08/18 Albuterol Sulfate 90 Mcg/Act (PROAIR HFA 90 MCG/ACT) 8.5 Gm Hfa.aer.ad, 1-2 PUFF IH 3-4XD, #1 INHALER Prov:KAY HARRIS DIRECTOR [facility] 01/12/18 Discontinued Reported Medications Amoxicillin (AMOXICILLIN) 500 Mg Capsule, 1 CAP PO Q8H, #15 CAPSULE 01/30/18 Past Medical/Surgical History Patient has a past medical history of migraines, irregular heartbeat, asthma, "bad teeth", substance abuse, alcohol abuse, anxiety. Patient has surgical history of tubal ligation. Reviewed Nurses Notes: Yes Hx Smoking: Yes Smoking Status: Current: Every Day Smoker Exposure to Second Hand Smoke?: Yes Hx Substance Use Disorder: Yes Hx Alcohol Use: Yes (OCCASIONAL) Constitutional Vital Sign - Last 24 Hours 04/08/18 04/08/18 04/08/18 04/08/18 14:27 14:30 14:45 15:00 Temp 97.8 Pulse 103 108 102 127 Resp 18 B/P (MAP) 132/87 147/89 (108) Pulse Ox 96 94 90 91 O2 Delivery Room Air 04/08/18 15:15 Pulse 92 Pulse Ox 95 Physical Exam General appearance: Alert no distress. Respiratory: Chest is non tender, lungs are clear to auscultation. Cardiac: Regular rate and rhythm. ENT: Tympanic membranes are pearly-gil, auditory canals are patent, mucous membranes are moist. Patient does have broken tooth #20. Patient has multiple caries along all teeth. DIFFERENTIAL DIAGNOSIS: After history and physical exam differential diagnosis was considered for tooth fracture, dental pain, abscess, infection. Medical Decision Making ED Course/Re-evaluation ED Course Patient was admitted and examined, history and physical were obtained. Diffe rential diagnoses were considered. On examination patient does have poor dentition, tooth #20 is broken at the back. Patient is complaining of significant amounts of pain. A dental block was done, using 1% lidocaine and 0.5% Marcaine in a one-to-one ratio. We injected 3 cc along the gumline. When she states she had no improvement we did do an inferior alveolar block also with no improvement. I did place a temporary filling using cemented from the dental box. Patient did request multiple times for narcotic pain medication requesting that I give her something to help with the pain. I informed her that with her treatment plan I would be unable to give her any pain medication. I did encourage her to follow-up with dentist for definitive care. When I told her nenita t I was unable to give her any pain medication she requested to speak to a supervisor modern languages. I did have her talk to Dionne Jones, nurse focused factory manager, who encouraged follow-up with primary care for definitive care. Patient verbalized understanding and agreement with plan. I did print off her treatment plan let her and gave her a copy. She is also given information for a dentist and primary care. Decision to Disposition Date: Apr 08, 2018 Decision to Disposition Time: 14:59 Depart Departure Latest Vital Signs Vital Signs Date Time Temp Pulse Resp B/P (MAP) Pulse Ox O2 Delivery O2 Flow Rate FiO2 04/08/18 15:15 92 95 04/08/18 15:00 147/89 (108) 04/08/18 14:27 97.8 18 Room Air Core Temperature (Celsius): 36.89 Impression: Primary Impression: Pain, dental Condition: Improved Disposition: HOME OR SELF-CARE New Scripts Amoxicillin (AMOXICILLIN) 500 Mg Capsule 1 CAP PO Q8H, #21 CAPSULE Prov: MARIBELL GARZA 04/08/18 Patient Instructions: Dental Caries (ED) Additional Instructions: You may take Ibuprofen or Tylenol as needed for pain. Rinse mouth with warm salt water after every meal. Eat soft foods. Follow up with your dentist as soon as possible, call to make an appointment. Return to the ER if condition worsens. MARIBELL GARZA Apr 08, 2018 14:35
[2018-04-08 15:00] VITALS: BP 147/89
[2018-04-08] MEDS ORDERED: AMOX-362 PO (15:20)
== END 2018-04-08 15:28 | disposition home or self-care (01) ==
LOC: ER 14:55
DX: K08.89 Other specified disorders of teeth and supporting structures (principal); S02.5XXA Fracture of tooth (traumatic), initial encounter for closed fracture
CPT/HCPCS: 99284

== ENCOUNTER 2018-04-20 13:48 | Emergency (ER) | payer MEDICAID ==
--- NOTE | 2018-04-20 13:49 | ER Report ---
History and Physical Time Seen By MD: 14:16 (ANGY MARTINEZ MD) HPI/ROS CHIEF COMPLAINT: Wheezing HISTORY OF PRESENT ILLNESS: Patient is a 38-year-old female with 2-3 days of cough that is worsened to the point where she is having paroxysmal cough. She needs to hemoptysis. She also states that there was a time today with coughing she cannot catch her breath. She has a history of reactive airways disease as a child but has not had asthma attacks as an adult. She is a heavy smoker. She also reports pain to the anterior chest wall. She denies any fevers or chills. She denies abdominal pain. REVIEW OF SYSTEMS: Constitutional: No fever, no chills. Eyes: No discharge. ENT: No sore throat. Cardiovascular: Anterior chest wall pain Respiratory: Cough, hemoptysis, dyspnea Gastrointestinal: No abdominal pain, no vomiting. Genitourinary: No hematuria. Musculoskeletal: No back pain. Skin: No rashes. Neurological: No headache. (ANGY MARTINEZ MD) Allergies: Coded Allergies: No Known Drug Allergies (Unverified , 04/08/18) Home Meds Active Scripts Prednisone (PREDNISONE) 20 Mg Tablet, 20 MG PO BID, #10 TAB Prov:FOSTER RESTREPO V DO 04/20/18 Azithromycin (ZITHROMAX) 250 Mg Tablet, 1 TAB PO QDAY, #6 TAB 2 pills (500mg) tomorrow then 1 pill (250mg) once a day for 4 more days. Prov:FOSTER RESTREPO V DO 04/20/18 Amoxicillin (AMOXICILLIN) 500 Mg Capsule, 1 CAP PO Q8H, #21 CAPSULE Prov:MARIBELL GARZA 04/08/18 Albuterol Sulfate 90 Mcg/Act (PROAIR HFA 90 MCG/ACT) 8.5 Gm Hfa.aer.ad, 1-2 PUFF IH 3-4XD, #1 INHALER Prov:KAY HARRIS FACTORY MAINTENANCE TECHNICIAN- 01/12/18 Past Medical/Surgical History History of IV drug abuse. (ANGY MARTINEZ MD) Hx Smoking: Yes Smoking Status: Current: Every Day Smoker Exposure to Second Hand Smoke?: Yes Hx Substance Use Disorder: Yes Hx Alcohol Use: Yes (OCCASIONAL) (ANGY MARTINEZ MD) Constitutional Vital Sign - Last 24 Hours 04/20/18 04/20/18 04/20/18 04/20/18 13:56 14:03 14:03 14:10 Temp 97.6 Pulse 118 111 105 Resp 24 16 16 B/P (MAP) 124/74 Pulse Ox 93 93 O2 Delivery Room Air Room Air 04/20/18 04/20/18 04/20/18 04/20/18 14:34 14:34 14:55 15:15 Pulse 98 105 111 Resp 18 18 18 Pulse Ox 92 O2 Delivery Room Air 04/20/18 15:15 Pulse Ox 93 O2 Delivery Room Air (LAURORA,FOSTER V DO) Physical Exam General Appearance: The patient is alert, has no immediate need for airway protection and no signs of toxicity. Eyes: Pupils equal and round no pallor or injection. ENT, Mouth: Mucous membranes are moist. Respiratory: with audible wheezing with prolonged expiratory phase Cardiovascular: Regular rate and rhythm. Gastrointestinal: Abdomen is soft and non tender, no masses, bowel sounds normal. Neurological: Awake and alert Skin: Warm and dry, no rashes. Musculoskeletal: Neck is supple non tender. Extremities are nontender, nonswollen and have full range of motion. (ANGY MARTINEZ MD) Medical Decision Making Data Points Result Diagram: 04/20/18 1502 04/20/18 1502 Laboratory Hematology Test 04/20/18 15:02 Red Blood Count 5.43 M/uL (4.17-5.56) Mean Corpuscular Volume 91.7 fL (80.0-96.0) Mean Corpuscular Hemoglobin 31.7 pg (26.0-33.0) Mean Corpuscular Hemoglobin Concent 34.5 g/dL (32.0-36.0) Red Cell Distribution Width 13.4 % (11.5-14.5) Mean Platelet Volume 8.7 fL (7.2-11.1) Neutrophils (%) (Auto) 59.7 % (39.4-72.5) Lymphocytes (%) (Auto) 29.4 % (17.6-49.6) Monocytes (%) (Auto) 9.5 % (4.1-12.4) Eosinophils (%) (Auto) 1.1 % (0.4-6.7) Basophils (%) (Auto) 0.3 % (0.3-1.4) Nucleated RBC Relative Count (auto) 0.0 /100WBC Neutrophils # (Auto) 7.9 K/uL (2.0-7.4) Lymphocytes # (Auto) 3.9 K/uL (1.3-3.6) Monocytes # (Auto) 1.3 K/uL (0.3-1.0) Eosinophils # (Auto) 0.2 K/uL (0.0-0.5) Basophils # (Auto) 0.0 K/uL (0.0-0.1) Nucleated RBC Absolute Count (auto) 0.00 K/uL Sodium Level 139 mmol/L (137-145) Potassium Level 3.6 mmol/L (3.5-5.0) Chloride Level 103 mmol/L (98-107) Carbon Dioxide Level 28 mmol/L (22-31) Blood Urea Nitrogen 11 mg/dl (7-18) Creatinine 0.70 mg/dl (0.52-1.04) Glomerular Filtration Rate Calc > 60.0 Random Glucose 90 mg/dl (75-110) Calcium Level 9.2 mg/dl (8.4-10.2) Total Bilirubin 0.2 mg/dl (0.2-1.3) Aspartate Amino Transf (AST/SGOT) 63 U/L (0-35) Alanine Aminotransferase (ALT/SGPT) 120 U/L (0-56) Alkaline Phosphatase 70 U/L (0-126) Total Protein 7.4 g/dl (6.3-8.2) Albumin 4.1 g/dl (3.5-5.0) Chemistry Test 04/20/18 15:02 White Blood Count 13.3 k/uL (4.5-11.0) Red Blood Count 5.43 M/uL (4.17-5.56) Hemoglobin 17.2 g/dL (12.0-16.0) Hematocrit 49.8 % (34.0-47.0) Mean Corpuscular Volume 91.7 fL (80.0-96.0) Mean Corpuscular Hemoglobin 31.7 pg (26.0-33.0) Mean Corpuscular Hemoglobin Concent 34.5 g/dL (32.0-36.0) Red Cell Distribution Width 13.4 % (11.5-14.5) Platelet Count 214 K/uL (150-450) Mean Platelet Volume 8.7 fL (7.2-11.1) Neutrophils (%) (Auto) 59.7 % (39.4-72.5) Lymphocytes (%) (Auto) 29.4 % (17.6-49.6) Monocytes (%) (Auto) 9.5 % (4.1-12.4) Eosinophils (%) (Auto) 1.1 % (0.4-6.7) Basophils (%) (Auto) 0.3 % (0.3-1.4) Nucleated RBC Relative Count (auto) 0.0 /100WBC Neutrophils # (Auto) 7.9 K/uL (2.0-7.4) Lymphocytes # (Auto) 3.9 K/uL (1.3-3.6) Monocytes # (Auto) 1.3 K/uL (0.3-1.0) Eosinophils # (Auto) 0.2 K/uL (0.0-0.5) Basophils # (Auto) 0.0 K/uL (0.0-0.1) Nucleated RBC Absolute Count (auto) 0.00 K/uL Glomerular Filtration Rate Calc > 60.0 Calcium Level 9.2 mg/dl (8.4-10.2) Total Bilirubin 0.2 mg/dl (0.2-1.3) Aspartate Amino Transf (AST/SGOT) 63 U/L (0-35) Alanine Aminotransferase (ALT/SGPT) 120 U/L (0-56) Alkaline Phosphatase 70 U/L (0-126) Total Protein 7.4 g/dl (6.3-8.2) Albumin 4.1 g/dl (3.5-5.0) (LAURORA,FOSTER V DO) EKG/Imaging Imaging [place] [facility] [place] NAME: Ainsley Parnell : 1980 MR: [id number] V: [id number] EXAM DATE: [id number] ORDERING PHYSICIAN: ANGY MARTINEZ TECHNOLOGIST: Location: [facility] Patient: Ainsley Parnell : 1980 Visit/Account:[id number] Date of Sevice: 04/20/2018 Examination: CHEST PA AND LAT Comparison: 01/13/2018. History: cough Findings: Increased peribronchial inflammation. No consolidation. No pneumothorax, edema, or effusion. Cardiac and hilar contour size is within normal limits. Osseous structures are intact. IMPRESSION: Increased peribronchial inflammation suggestive of a bronchitis or reactive airway disease. No consolidation. Report Dictated By: Qsaim Manuel MD at 04/20/2018 2:53 PM Report E-Signed By: Qasim Manuel MD at 04/20/2018 2:56 PM WSN:[id number] (ANGY MARTINEZ MD) ED Course/Re-evaluation ED Course 04/20/2018 2:25:45 pm patient with reactive airways disease exacerbation. Plan at this time will be albuterol and Atrovent nebulizer we will give 125 IV Solu- Medrol. Check CBC CMP and chest x-ray. (ANGY MARTINEZ MD) ED Course 04/20/2018 3:50:04 pm Pt signed out to me by pending completion of magnesium and repeat evaluation. Pts reevaluated and does have some minimal wheezing but currently does have breath sounds b/l that are loud. PT is able to take a deep breath. Pt feels improvement from when she first arrived. Pt c/o of pain in her left ear from coughing earlier. Pt has not had relief from the toradol given to her by . Pt has a treatment plan in ED that states no narcotics. Will give pt a dose of Ketamine which should help with her pain but also act at a bronchodilator and help her breathing. Pt counseled on stop smo ida. PT does not have inhaler or nebulizer at her house. If she continues to improve then will need to go home with inhaler. 04/20/2018 4:12:56 pm Pt states she feels better after the Ketamine. " It helped my breathing and my ear." Calling respitory to come down to show her how to use an inhaler with a spacer properly. 04/20/2018 4:31:54 pm PT feels comfortable going home "can i get dressed". I asked pt to wait for the nursing staff to disconnect her before getting dressed. will give her abx since she does not know if she can pick it up tonight. Decision to Disposition Date: Apr 20, 2018 Decision to Disposition Time: 16:30 (FOSTER RESTREPO DO) Depart Departure Latest Vital Signs Vital Signs Date Time Temp Pulse Resp B/P (MAP) Pulse Ox O2 Delivery O2 Flow Rate FiO2 04/20/18 15:15 93 Room Air 04/20/18 15:15 111 18 04/20/18 13:56 97.6 124/74 (FOSTER RESTREPO DO) Core Temperature (Celsius): 36.89 (ANGY MARTINEZ MD) Impression: Primary Impression: Bronchitis Additional Impression: Reactive airway disease with wheezing with acute exacerbation Condition: Improved Disposition: HOME OR SELF-CARE New Scripts Prednisone (PREDNISONE) 20 Mg Tablet 20 MG PO BID, #10 TAB Prov: FOSTER RESTREPO DO 04/20/18 Azithromycin (ZITHROMAX) 250 Mg Tablet 1 TAB PO QDAY, #6 TAB 2 pills (500mg) tomorrow then 1 pill (250mg) once a day for 4 more days. Prov: FOSTER RESTREPO DO 04/20/18 Departure Forms: ER Transition Record, Medications Reconciliation, Off Work/School Form, School or Work Release?: Work Number of days to be released: 2 Patient Portal Information Patient Instructions: Acute Bronchitis (ED), Bronchospasm (ED) Additional Instructions: It is very important that you do not smoke cigarettes. Your xray did not show pneumonia. We are treating you for bronchitis with reactive airway. albuterol inhaler (given to you at discharge) 2 puffs every 4 hours as needed for cough, wheeze or shortness of breath. Use with spacer to make sure you are getting all of the medication. Prednisone one pill twice a day. Zithromax (start tomorrow) two pills tomorrow then one pill once a day. Follow up with your family doctor. Return as needed. Problem Qualifiers Additional Impression: Reactive airway disease with wheezing with acute exacerbation Asthma severity: mild Asthma persistence: intermittent Qualified Codes: J45.21 - Mild intermittent asthma with (acute) exacerbation ANGY MARTINEZ MD Apr 20, 2018 13:49 FOSTER RESTREPO DO Apr 20, 2018 15:54
[2018-04-20] MEDS ORDERED: ALBUTEROL/IPRATROPIUM 3 ML NEB NEB ONE (14:05)
[2018-04-20] MEDS ORDERED: methylPREDNIS SUCC 125 MG/2ML IVP ONE (14:10)
[2018-04-20] MEDS ORDERED: IPRATROPIUM 0.5MG/2.5ML NEB NEB ONE (14:25)
[2018-04-20] MEDS ORDERED: ALBUTEROL 2.5 MG/0.5ML ER ONLY NEB ONE (14:25)
--- NOTE | 2018-04-20 15:00 | RADIOLOGY IMAGING REPORT ---
[place] [facility] [place] NAME: Ainsley Parnell : 1980 MR: [id number] V: [id number] EXAM DATE: [id number] ORDERING PHYSICIAN: ANGY MARTINEZ TECHNOLOGIST: Location: [facility] Patient: Ainsley Parnell : 1980 Visit/Account:[id number] Date of Sevice: 04/20/2018 Examination: CHEST PA AND LAT Comparison: 01/13/2018. History: cough Findings: Increased peribronchial inflammation. No consolidation. No pneumothorax, edema, or effusion . Cardiac and hilar contour size is within normal limits. Osseous structures are intact. IMPRESSION: Increased peribronchial inflammation suggestive of a bronchitis or reactive airway disease. No consol idation. Report Dictated By: Qasim Manuel MD at 04/20/2018 2:53 PM Report E-Signed By: Qasim Manuel MD at 04/20/2018 2:56 PM WSN:[id number]
[2018-04-20] MEDS ORDERED: KETOROLAC 15 MG/ML VIAL IVP ONE (15:05)
[2018-04-20 15:12] LABS: PLATELET COUNT, AUTOMATED 214 K/uL (150-450)
[2018-04-20] MEDS ORDERED: MAGNESIUM SUL* 2 GM/50 ML IVPB 50 ML IVPB ONE (15:15)
[2018-04-20] MEDS ORDERED: KETAMINE HCL-NS 50 MG/5 ML SYR IVP ONE (15:50)
--- NOTE | 2018-04-20 16:02 | EKG ---
FACILITY: [facility] [place] PATIENT NAME: YOLI GARDINER : [id number] MR: [id number] V: [id number] EXAM DATE: ORDERING PHYSICIAN: ANGY MARTINEZ TECHNOLOGIST: WILFRID Heard Reason : RESPIRATORY Blood Pressure : / mmHG Vent. Rate : 119 BPM Atrial Rate : 119 BPM P-R Int : 138 ms QRS Dur : 094 ms QT Int : 340 ms P-R-T Axes : 057 064 033 degrees QTc Int : 478 ms Sinus tachycardia No acute appearing findings When compared with ECG of 13-JAN-2018 13:57, No significant change was found Confirmed by JERMAINE EISENBERG ([id number]) on 04/21/2018 6:25:31 AM Referred By: MICHELLE Confirmed By:JERMAINE EISENBERG
[2018-04-20 16:10] VITALS: BP 126/58
[2018-04-20] MEDS ORDERED: ALBUTEROL 8 GM INHALER INH ONE (16:10)
[2018-04-20] MEDS ORDERED: AZIT-1 PO (16:16)
[2018-04-20] MEDS ORDERED: PRED20TA6 PO (16:16)
[2018-04-20] MEDS ORDERED: AZITHROMYCIN 250 MG TAB PO ONE (16:30)
== END 2018-04-20 16:46 | disposition home or self-care (01) ==
LOC: ER 14:02
DX: J40 Bronchitis, not specified as acute or chronic (principal); J45.21 Mild intermittent asthma with (acute) exacerbation; F17.210 Nicotine dependence, cigarettes, uncomplicated
CPT/HCPCS: 71046; 85025; 93005; 94640; 94644; 96365; 96375; 99284; J1885; J2930; J3475; J3490; J3535; J7611; J7620; J7644; Q0144; 82040; 82247; 82310; 82374; 82435; 82565; 82947; 84075; 84132; 84155; 84295; 84450; 84460; 84520